=== PATIENT | male | born 1985 ===

== ENCOUNTER 2021-01-27 19:08 | Outpatient (REF) | payer BC, SELFPAY ==
[2021-01-27 20:12] LABS: Influenza A PCR NEGATIVE (Negative); Influenza B PCR NEGATIVE (Negative); Resp Syncy Virus RNA Qual PCR NEGATIVE (Negative); SARS COV2 PCR INHOUSE NEGATIVE (Negative)
== END 2021-01-27 19:09 | disposition home or self-care (01) ==
LOC: HO.LNP 19:08
PROVIDERS: Visit Provider Family Medicine
DX: Z20.822 Contact with and (suspected) exposure to COVID-19 (principal); B34.9 Viral infection, unspecified
CPT/HCPCS: 0241U